=== PATIENT | female | born 1990 | race Caucasian/White ===

== ENCOUNTER 2017-07-27 12:18 | Emergency (ER) | payer SELFPAY ==
[~2017-07-27] VITALS: Ht 144.8 cm; Wt 45.0 kg
[2017-07-27 12:36] VITALS: BP 111/70; PULSE 109; RESP 16; TEMP 98.7; O2SAT 100
[2017-07-27] MEDS ORDERED: SODIUM CHLORIDE 0.9% FLUSH 10 ML FLUSH IVF PRN (13:00)
[2017-07-27] MEDS ORDERED: KETOROLAC TROMETHAMINE 30 MG/ML (IVP) VIAL IVP ONE (13:00)
[2017-07-27] MEDS ORDERED: diphenhydrAMINE HCL 50 MG/ML VIAL IVP ONE (13:00)
[2017-07-27] MEDS ORDERED: METOCLOPRAMIDE HCL 10 MG/2 ML VIAL IVP ONE (13:00)
[2017-07-27] MEDS ORDERED: SODIUM CHLOR 0.9% 1000 ML INJ 1,000 ML IV ONE (13:00)
--- NOTE | 2017-07-27 13:07 | PD ---
HPI Chief Complaint: GI Complaint Time Seen by Provider: 12:53 Travel History International Travel<30 days: No Contact w/Intl Traveler<30days: No Traveled to known affect area: No History of Present Illness HPI This is a 27-year-old female who reports a history of migraines, rheumatoid arthritis and chronic anemia. She presents for evaluation of nausea and vomiting. Symptoms started at 6:30 AM. She reports multiple episodes of nonbloody emesis, no dry heaves. She reports she feels dehydrated. She is now developing a frontal pulsating headache with associated photophobia which is consistent with her frequent migraines. She reports that she gets migraines several times a week. She is currently traveling from [place]. She reports very occasional alcohol use. Denies any excessive alcohol use. Denies any drug use. Denies eating anything unusual. She reports that her friend who is at bedside ate the same food that she did yesterday. She denies abdominal pain, cough or congestion, flank pain, fevers or chills, dysuria, vaginal bleeding or discharge. Last menstrual period was 3 weeks ago. No other complaints at this time. [facility] Past Medical History Anemia: Yes Immunizations Current: Yes ?: Not Past Surgical History Gynecologic Surgery: Yes (tubal, csection) Tonsillectomy: Yes Social History Alcohol Use: No Tobacco Use: No Allergies-Medications (Allergen,Severity, Reaction): Coded Allergies: No Known Allergies (Unverified , 07/27/17) Reported Meds & Prescriptions Reported Meds & Active Scripts Active Zofran (Ondansetron HCl) 4 Mg Tab 4 Mg PO Q6HR PRN Review of Systems Except as stated in HPI: all other systems reviewed are Neg Physical Exam Narrative GENERAL: Well-developed well-nourished female sitting in a darkened room. SKIN: Warm and dry. HEAD: Atraumatic. Normocephalic. EYES: Pupils equal and round. No scleral icterus. No injection or drainage. ENT: No nasal bleeding or discharge. Mucous membranes pink and moist. NECK: Trachea midline. No JVD. CARDIOVASCULAR: Regular rate and rhythm. No murmur appreciated. RESPIRATORY: No accessory muscle use. Clear to auscultation. Breath sounds equal bilaterally. GASTROINTESTINAL: Abdomen soft, non-tender, nondistended. Hepatic and splenic margins not palpable. MUSCULOSKELETAL: No obvious deformities. No clubbing. No cyanosis. No edema. NEUROLOGICAL: Awake and alert. No obvious cranial nerve deficits. Motor grossly within normal limits. Normal speech. PSYCHIATRIC: Appropriate mood and affect; insight and judgment normal. Data Data Last Documented VS Vital Signs Date Time Temp Pulse Resp B/P (MAP) Pulse Ox O2 Delivery O2 Flow Rate FiO2 07/27/17 15:02 68 18 99 07/27/17 13:28 Room Air 07/27/17 12:36 98.7 111/70 (84) Orders Orders Complete Blood Count With Diff (07/27/17 13:00) Comprehensive Metabolic Panel (07/27/17 13:00) Ecg Monitoring (07/27/17 13:00) Iv Access Insert/Monitor (07/27/17 13:00) Oximetry (07/27/17 13:00) Sodium Chloride 0.9% Flush (Ns Flush) (07/27/17 13:00) Ketorolac Inj (Toradol Inj) (07/27/17 13:00) Diphenhydramine Inj (Benadryl Inj) (07/27/17 13:00) Metoclopramide Inj (Reglan Inj) (07/27/17 13:00) Sodium Chlor 0.9% 1000 Ml Inj (Ns 1000 M (07/27/17 13:00) Urinalysis - C+S If Indicated (07/27/17 13:00) Ed Urine Pregnancytest Poc (07/27/17 13:00) Magnesium (Mg) (07/27/17 13:00) Labs Laboratory Tests Test 07/27/17 13:15 07/27/17 14:30 White Blood Count 14.5 TH/MM3 Red Blood Count 4.34 MIL/MM3 Hemoglobin 12.7 GM/DL Hematocrit 38.3 % Mean Corpuscular Volume 88.1 FL Mean Corpuscular Hemoglobin 29.3 PG Mean Corpuscular Hemoglobin Concent 33.2 % Red Cell Distribution Width 13.1 % Platelet Count 305 TH/MM3 Mean Platelet Volume 8.2 FL Neutrophils (%) (Auto) 91.8 % Lymphocytes (%) (Auto) 5.3 % Monocytes (%) (Auto) 2.6 % Eosinophils (%) (Auto) 0.0 % Basophils (%) (Auto) 0.3 % Neutrophils # (Auto) 13.3 TH/MM3 Lymphocytes # (Auto) 0.8 TH/MM3 Monocytes # (Auto) 0.4 TH/MM3 Eosinophils # (Auto) 0.0 TH/MM3 Basophils # (Auto) 0.0 TH/MM3 CBC Comment DIFF FINAL Differential Comment Blood Urea Nitrogen 11 MG/DL Creatinine 0.49 MG/DL Random Glucose 96 MG/DL Total Protein 8.2 GM/DL Albumin 4.2 GM/DL Calcium Level 8.8 MG/DL Magnesium Level 1.9 MG/DL Alkaline Phosphatase 61 U/L Aspartate Amino Transf (AST/SGOT) 12 U/L Alanine Aminotransferase (ALT/SGPT) 18 U/L Total Bilirubin 0.3 MG/DL Sodium Level 142 MEQ/L Potassium Level 4.2 MEQ/L Chloride Level 106 MEQ/L Carbon Dioxide Level 26.8 MEQ/L Anion Gap 9 MEQ/L Estimat Glomerular Filtration Rate 154 ML/MIN Urine Color YELLOW Urine Turbidity CLEAR Urine pH 8.0 Urine Specific [place] 1.019 Urine Protein 30 mg/dL Urine Glucose (UA) NEG mg/dL Urine Ketones NEG mg/dL Urine Occult Blood NEG Urine Nitrite NEG Urine Bilirubin NEG Urine Urobilinogen LESS THAN 2.0 MG/DL Urine Leukocyte Esterase NEG Urine RBC 1 /hpf Urine WBC LESS THAN 1 /hpf Urine Squamous Epithelial Cells <1 /hpf Urine Mucus FEW /lpf Microscopic Urinalysis Comment CULT NOT INDICATED MDM Medical Decision Making Medical Screen Exam Complete: Yes Emergency Medical Condition: Yes Medical Record Reviewed: Yes Differential Diagnosis Migraine, gastroenteritis, dehydration, electrolyte abnormality Narrative Course The patient was given IV fluids, Toradol, Reglan and Benadryl. Lab work was obtained. CBC reveals WBC count of 14.5, CMP is unremarkable, workable, urine test is negative. Upon reexamination she feels significantly improved. Symptoms are consistent with likely viral syndrome and migraine. She will be discharged with a short course of antiemetics. Diagnosis Primary Impression: Nausea and vomiting Additional Impression: Migraine Additional Instructions: Medication as needed for nausea. Slowly advance diet as tolerated. Return for any acutely new or worsening symptoms. Med/Other Pt SpecificInfo: Prescription(s) given Scripts Ondansetron (Zofran) 4 Mg Tab 4 MG PO Q6HR Y for NAUSEA OR VOMITING, #20 TAB 0 Refills Prov: Aydee Shah MD 5/24/18 Disposition: 01 DISCHARGE HOME Condition: Stable Anthony Shah July 27, 2017 13:07
[2017-07-27 13:28] VITALS: O2SAT 99
[2017-07-27 13:45] LABS: AUTOMATED NEUTROPHIL # 13.3 TH/MM3 (1.8-7.7); BASOPHIL % 0.3 % (0.0-2.0); HEMATOCRIT 38.3 % (35.0-46.0); HEMOGLOBIN 12.7 GM/DL (11.6-15.3); LYMPH % 5.3 % (9.0-44.0); LYMPHOCYTE # 0.8 TH/MM3 (1.0-4.8); MEAN CELL VOLUME 88.1 FL (80.0-100.0); MEAN CORPUSCULAR HEMOGLOBIN 29.3 PG (27.0-34.0); MEAN CORPUSCULAR HGB CONC 33.2 % (32.0-36.0); MEAN PLATELET VOLUME 8.2 FL (7.0-11.0); MONO % 2.6 % (0.0-8.0); MONOCYTE # 0.4 TH/MM3 (0-0.9); NEUT % 91.8 % (16.0-70.0); PLATELET COUNT 305 TH/MM3 (150-450); RED BLOOD COUNT 4.34 MIL/MM3 (4.00-5.30); RED CELL DISTRIBUTION WIDTH 13.1 % (11.6-17.2); WHITE BLOOD COUNT 14.5 TH/MM3 (4.0-11.0)
[2017-07-27 14:03] LABS: ALBUMIN 4.2 GM/DL (3.4-5.0); ALT (GPT) 18 U/L (10-53); AST (GOT) 12 U/L (15-37); BICARBONATE 26.8 MEQ/L (21.0-32.0); BLOOD UREA NITROGEN 11 MG/DL (7-18); CALCIUM 8.8 MG/DL (8.5-10.1); CHLORIDE 106 MEQ/L (98-107); CREATININE 0.49 MG/DL (0.50-1.00); GLOMERULAR FILTRATION RATE 154 ML/MIN (>89); GLUCOSE,RANDOM 96 MG/DL (74-106); MAGNESIUM 1.9 MG/DL (1.5-2.5); SODIUM (NA) 142 MEQ/L (136-145)
[2017-07-27 14:04] LABS: ALKALINE PHOSPHATASE 61 U/L (45-117); TOTAL BILIRUBIN ADULT 0.3 MG/DL (0.2-1.0); TOTAL PROTEIN 8.2 GM/DL (6.4-8.2)
[2017-07-27 14:54] LABS: BILIRUBIN, URINE NEG (NEG); BLOOD, URINE NEG (NEG); GLUCOSE,URINE NEG (NEG); KETONE, URINE NEG (NEG); MUCUS URINE FEW /lpf (OCC); NITRITE,URINE NEG (NEG); SQUAMOUS EPITHELIAL CELL URINE <1 /hpf (0-5); URINE COLOR YELLOW (YELLW/STRAW); URINE LEUKOCYTE ESTERASE NEG (NEG)
[2017-07-27 15:02] VITALS: PULSE 68; RESP 18; O2SAT 99
[2017-07-27] MEDS ORDERED: ZOFR4TAB PO (15:04)
--- NOTE | 2017-07-27 15:04 | PD ---
Data Data Last Documented VS Vital Signs Date Time Temp Pulse Resp B/P (MAP) Pulse Ox O2 Delivery O2 Flow Rate FiO2 07/27/17 15:02 68 18 99 07/27/17 13:28 Room Air 07/27/17 12:36 98.7 111/70 (84) Orders Orders Complete Blood Count With Diff (07/27/17 13:00) Comprehensive Metabolic Panel (07/27/17 13:00) Ecg Monitoring (07/27/17 13:00) Iv Access Insert/Monitor (07/27/17 13:00) Oximetry (07/27/17 13:00) Sodium Chloride 0.9% Flush (Ns Flush) (07/27/17 13:00) Ketorolac Inj (Toradol Inj) (07/27/17 13:00) Diphenhydramine Inj (Benadryl Inj) (07/27/17 13:00) Metoclopramide Inj (Reglan Inj) (07/27/17 13:00) Sodium Chlor 0.9% 1000 Ml Inj (Ns 1000 M (07/27/17 13:00) Urinalysis - C+S If Indicated (07/27/17 13:00) Ed Urine Pregnancytest Poc (07/27/17 13:00) Magnesium (Mg) (07/27/17 13:00) Labs Laboratory Tests Test 07/27/17 13:15 07/27/17 14:30 White Blood Count 14.5 TH/MM3 Red Blood Count 4.34 MIL/MM3 Hemoglobin 12.7 GM/DL Hematocrit 38.3 % Mean Corpuscular Volume 88.1 FL Mean Corpuscular Hemoglobin 29.3 PG Mean Corpuscular Hemoglobin Concent 33.2 % Red Cell Distribution Width 13.1 % Platelet Count 305 TH/MM3 Mean Platelet Volume 8.2 FL Neutrophils (%) (Auto) 91.8 % Lymphocytes (%) (Auto) 5.3 % Monocytes (%) (Auto) 2.6 % Eosinophils (%) (Auto) 0.0 % Basophils (%) (Auto) 0.3 % Neutrophils # (Auto) 13.3 TH/MM3 Lymphocytes # (Auto) 0.8 TH/MM3 Monocytes # (Auto) 0.4 TH/MM3 Eosinophils # (Auto) 0.0 TH/MM3 Basophils # (Auto) 0.0 TH/MM3 CBC Comment DIFF FINAL Differential Comment Blood Urea Nitrogen 11 MG/DL Creatinine 0.49 MG/DL Random Glucose 96 MG/DL Total Protein 8.2 GM/DL Albumin 4.2 GM/DL Calcium Level 8.8 MG/DL Magnesium Level 1.9 MG/DL Alkaline Phosphatase 61 U/L Aspartate Amino Transf (AST/SGOT) 12 U/L Alanine Aminotransferase (ALT/SGPT) 18 U/L Total Bilirubin 0.3 MG/DL Sodium Level 142 MEQ/L Potassium Level 4.2 MEQ/L Chloride Level 106 MEQ/L Carbon Dioxide Level 26.8 MEQ/L Anion Gap 9 MEQ/L Estimat Glomerular Filtration Rate 154 ML/MIN Urine Color YELLOW Urine Turbidity CLEAR Urine pH 8.0 Urine Specific [place] 1.019 Urine Protein 30 mg/dL Urine Glucose (UA) NEG mg/dL Urine Ketones NEG mg/dL Urine Occult Blood NEG Urine Nitrite NEG Urine Bilirubin NEG Urine Urobilinogen LESS THAN 2.0 MG/DL Urine Leukocyte Esterase NEG Urine RBC 1 /hpf Urine WBC LESS THAN 1 /hpf Urine Squamous Epithelial Cells <1 /hpf Urine Mucus FEW /lpf Microscopic Urinalysis Comment CULT NOT INDICATED MDM Supervised Visit with ROBERT: Yes Narrative Course The history, exam, and medical decision-making in the associated midlevel provider note were completed with my assistance. I reviewed and agree with the findings presented. I attest that I had a [id number] encounter with the patient on the same day, and personally performed and documented my assessment and findings in the medical record. *My assessment and Findings: This is a 27-year-old female who presents to the emergency department with headache similar to migraine she has had in the past associated with some vomiting over the past several days. She appears very well on exam with a normal gross neurologic exam. Labs demonstrate a mild leukocytosis. She feels much better after migraine cocktail. I suspect this is a viral syndrome causing her symptoms. I do not think she requires any additional imaging. I think she can be safely discharged home. Scripts No Active Prescriptions or Reported Meds Aydee Shah MD July 27, 2017 15:04
== END 2017-07-27 15:33 | disposition home or self-care (01) ==
LOC: NEPA 12:18
DX: R11.2 Nausea with vomiting, unspecified (principal); G43.909 Migraine, unspecified, not intractable, without status migrainosus; D64.9 Anemia, unspecified
CPT/HCPCS: 80053; 81001; 83735; 84703; 85025; 96361; 96374; 96375; 99284; J1200; J1885; J2765; J7030